=== PATIENT | male | born 1980 | race Caucasian/White ===

== ENCOUNTER 2016-10-11 00:20 | Emergency (ER) | payer OTHER ==
[~2016-10-11] VITALS: Ht 180.3 cm; Wt 137.9 kg
[~2016-10-11 00:20] MED LIST: IBUP600T44 PO
[2016-10-11 00:26] VITALS: TEMP 36.7; Ht 180.3 cm; Wt 137.9 kg
[2016-10-11] MEDS ORDERED: NALT380I INJ (00:48)
[2016-10-11 01:33] VITALS: BP 145/96; PULSE 78; O2SAT 98
[2016-10-11] MEDS ORDERED: DICL75TA2 PO (01:37)
--- NOTE | 2016-10-11 03:48 | EMERGENCY ROOM VISIT NOTE ---
ED Visit Note First contact with patient: 00:31 CHIEF COMPLAINT: knee pain HISTORY OF PRESENT ILLNESS: This 36-year-old male patient presents to the emergency department after sustaining an injury to the left knee earlier today when walking downhill. The patient states that he has had some ongoing knee pain for the past month, and he exacerbated it this afternoon. The patient denies any other injuries besides their knee. The patient does not have swelling or bruising. There is pain diffusely. They rate the pain as dull and 7/10. The patient states they are able to walk on it. No numbness or tingling. No previous injuries to this knee. No ankle, foot or hip pain. REVIEW OF SYSTEMS: A 6 system review of systems was completed with positives and pertinent negatives listed in the HPI. ALLERGIES: Amoxicillin, narcotics MEDICATIONS: No chronic medication PMH: Otherwise healthy SOCIAL HISTORY: Lives outside of [place] PHYSICAL EXAM: Vital Signs: Reviewed Nurse's notes, vital signs stable. GENERAL : White male, no acute distress, but appears in pain, well-developed, well- nourished. MENTAL STATUS: Alert, oriented to person place and time, and cooperative. MUSCULOSKELETAL: The left knee is minimally swollen. There is no ecchymosis. There is no joint effusion present. The patient is tender medially. There is no joint line tenderness. The patella does not subluxate. Range of motion is normal. Strength of the quads and hamstrings is 5/5. Hanna' s is negative. Naye's and Anterior Drawer tests are negative. There is no laxity with varus and valgus stressing. The foot and toes are warm and well- perfused. Dorsalis pedis pulse 2+. Sensation to pain and light touch is intact. Capillary refill less than 2 seconds. EMERGENCY DEPARTMENT COURSE: Physical exam and history were performed. Nursing notes and EMR were reviewed. The patient appears to have left knee pain for the past month that is exacerbated today. X-rays were performed and do not appear to show acute fracture or dislocation per my interpretation. Radiology report is pending at the time of this dictation. I offered crutches and knee immobilizer to the patient, and he declined. He is unable to take narcotics and I will give him a prescription of diclofenac. The patient will also be given information to follow with orthopedics and was otherwise invited back to the ER with any new, worsening, or concerning symptoms. Current/Historical Medications Scheduled Diclofenac Sodium (Voltaren), 75 MG PO BID Naltrexone (Vivitrol), 1 DOSE INJ MONTHLY Scheduled PRN Ibuprofen (Motrin), 600 MG PO TID PRN for Pain Allergies Coded Allergies: Amoxicillin (Verified Allergy, Unknown, hives, 04/15/15) Uncoded Allergies: NARCOTICS (Allergy, Severe, PATIENT IS ON VIVITROL, 10/11/16) PT REQUEST ABSOLUTELY NO NARCOTICS FOR PAIN..EX HEROIN ADDICT AND ON VIVITROL Vital Signs Date Time Temp Pulse Resp B/P Pulse Ox O2 Delivery O2 Flow Rate FiO2 10/11/16 01:33 78 18 145/96 98 Room Air 10/11/16 00:26 36.7 89 18 137/90 96 Room Air Departure Information Impression Primary Impression: Left knee pain Dispostion Home / Self-Care Condition GOOD Prescriptions Diclofenac Sodium (VOLTAREN) 75 Mg Tab 75 MG PO BID for 10 Days, #20 TAB Prov: Dejuan Castaneda, JUANCARLOS 10/11/16 Referrals Baldemar Nicholson M.D. Forms HOME CARE DOCUMENTATION FORM, Work Instructions, Additional Instructions: Patient was seen and evaluated today in the emergency department medica care. Return to work on 10/14/2016. IMPORTANT VISIT INFORMATION Patient Instructions My [facility], ED RICE Additional Instructions You were seen and evaluated today on an emergency basis only. This is not a substitute for, or an effort to provide, complete comprehensive medical care. It is not possible to recognize and treat all injuries or illnesses in a single emergency department visit. For this reason it is recommended that you followup with Orthopedics, Dr. Nicholson's office, with any ongoing or persistent issues. Take diclofenac 75 mg twice daily with food. You are welcome to return to the emergency department anytime with new, worsening, or concerning symptoms. Work Instructions Additional Work Instructions: Patient was seen and evaluated today in the emergency department medical care. Return to work on 10/14/2016.
--- NOTE | 2016-10-11 07:18 | DIAGNOSTIC IMAGING REPORT ---
LEFT KNEE 3 VIEWS CLINICAL HISTORY: Left knee pain of one month's duration. No history of trauma. FINDINGS: AP, crosstable lateral, and sunrise views of the left knee are obtained. No prior studies are available for comparison at the time of dictation. The skeletal structures are well mineralized. No fracture is seen. The joint spaces of the knee are well-maintained. A joint effusion is identified. Mild patellar soft tissue edema is noted. IMPRESSION: Mild soft tissue swelling and joint effusion. No fracture is seen. Electronically signed by: Humberto Ha M.D. 10/11/2016 7:17 AM Dictated Date/Time: 10/11/2016 7:16 AM
== END 2016-10-11 01:45 | disposition home or self-care (01) ==
LOC: C.EDB 00:21 → C.EDC 01:45
DX: M25.562 Pain in left knee (principal)

== ENCOUNTER 2016-12-22 16:23 | Emergency (ER) | payer OTHER ==
[~2016-12-22] VITALS: Ht 180.3 cm; Wt 124.5 kg
[~2016-12-22 16:23] MED LIST changes: +NALT380I INJ
[2016-12-22 16:26] VITALS: TEMP 36.7; Ht 180.3 cm; Wt 124.5 kg
--- NOTE | 2016-12-22 16:43 | EMERGENCY ROOM VISIT NOTE ---
History Report prepared by Kendra: Radha Basurto Under the Supervision of: Mykel RidleyO. First contact with patient: 16:29 Chief Complaint: ABDOMINAL PAIN Stated Complaint: HERNIA- MAY BE WC Nursing Triage Summary: Pt reports umbilical pain for a couple weeks with diarrhea and constipation. Last BM was an hour ago. History of Present Illness The patient is a 36 year old male who presents to the Emergency Room with complaints of persistent umbilical abdominal pain that began four days ago. He currently rates his discomfort as a 3/10 in severity. The patient states that he noticed an umbilical hernia four days ago and denies seeing anyone for his hernia. He reports intermittent nausea, but denies any vomiting. The patient reports tobacco use, but denies any alcohol use. He additionally notes constipation. The patient reports a history of psoriasis. He notes a surgical history of bilateral carpal tunnel hands, and bilateral hip surgeries. Source of History: patient Onset: four days ago Position: abdomen (umbilical) Symptom Intensity: 3/10 Timing: other (persistent) Associated Symptoms: + nausea, No vomiting Note: Associated Symptoms: constipation Review of Systems See HPI for pertinent positives & negatives. A total of 10 systems reviewed and were otherwise negative. Past Medical & Surgical Medical Problems: (1) No Known Active Medical Problems Family History FH: HTN (hypertension) FH: diabetes mellitus FH: heart disease Social History Smoking Status: Current Every Day Smoker Alcohol Use: none Housing Status: lives alone Occupation Status: employed Current/Historical Medications No Active Prescriptions or Reported Meds Allergies Coded Allergies: Amoxicillin (Verified Allergy, Unknown, hives, 12/22/16) Uncoded Allergies: NARCOTICS (Allergy, Severe, PATIENT IS ON VIVITROL, 10/11/16) PT REQUEST ABSOLUTELY NO NARCOTICS FOR PAIN..EX HEROIN ADDICT AND ON VIVITROL Physical Exam Vital Signs Date Time Temp Pulse Resp B/P (MAP) Pulse Ox O2 Delivery O2 Flow Rate FiO2 12/22/16 18:16 79 18 139/90 96 12/22/16 16:26 36.7 86 18 140/77 96 Room Air Physical Exam GENERAL: Patient is awake, alert, and in no acute distress. Patient is resting comfortably and showing no signs of anxiety EYES: The conjunctivae are clear. The pupils are round and reactive. EARS, NOSE, MOUTH AND THROAT: The nose is without any evidence of any deformity. Mucous membranes are moist tongue is midline NECK: The neck is nontender and supple. RESPIRATORY: Normal respiratory effort is noted there is no evidence of wheezing rhonchi or rales CARDIOVASCULAR: Regular rate and rhythm noted there no murmurs rubs or gallops normal S1 normal S2 GASTROINTESTINAL: The abdomen is mildly distended but soft, umbilical hernia noted to palpation, easily reducible and nontender. no groin tenderness. MUSCULOSKELETAL/EXTREMITIES: There is no evidence of gross deformity full range of motion is noted in the hips and shoulders SKIN: There is no obvious evidence of any rash. There are no petechiae, pallor or cyanosis noted. NEUROLOGIC: Patient is awake alert and oriented x3. Medical Decision & Procedures ER Provider Diagnostic Interpretation: ABDOMEN 2VIEW W/PA CHEST RTN CLINICAL HISTORY: ABDOMINAL PAIN/GI COMPARISON STUDY: No previous studies for comparison. FINDINGS: The soft tissues, psoas shadows, renal outlines and intestinal gas pattern appear normal. There is no evidence for bowel obstruction. There is no evidence for free intraperitoneal air. No abnormal abdominal calcifications are seen. A frontal view of the chest was performed and is unremarkable. IMPRESSION: Normal study. The above report was generated using voice recognition software. It may contain grammatical, syntax or spelling errors. Electronically signed by: Torsten Armstrong M.D. 12/22/2016 5:26 PM Laboratory Results 12/22/16 16:45 Red Blood Count 4.96, Mean Corpuscular Volume 89.9, Mean Corpuscular Hemoglobin 30.2, Mean Corpuscular Hemoglobin Concent 33.6, Mean Platelet Volume 11.3, Neutrophils (%) (Auto) 63.0, Lymphocytes (%) (Auto) 22.6, Monocytes (%) (Auto) 11.2, Eosinophils (%) (Auto) 2.7, Basophils (%) (Auto) 0.2, Neutrophils # (Auto ) 6.79, Lymphocytes # (Auto) 2.43, Monocytes # (Auto) 1.20, Eosinophils # (Auto ) 0.29, Basophils # (Auto) 0.02 12/22/16 16:45 Test 12/22/16 16:45 White Blood Count 10.76 K/uL (4.8-10.8) Red Blood Count 4.96 M/uL (4.7-6.1) Hemoglobin 15.0 g/dL (14.0-18.0) Hematocrit 44.6 % (42-52) Mean Corpuscular Volume 89.9 fL (80-100) Mean Corpuscular Hemoglobin 30.2 pg (25-34) Mean Corpuscular Hemoglobin Concent 33.6 g/dl (32-36) Platelet Count 285 K/uL (130-400) Mean Platelet Volume 11.3 fL (7.4-10.4) Neutrophils (%) (Auto) 63.0 % Lymphocytes (%) (Auto) 22.6 % Monocytes (%) (Auto) 11.2 % Eosinophils (%) (Auto) 2.7 % Basophils (%) (Auto) 0.2 % Neutrophils # (Auto) 6.79 K/uL (1.4-6.5) Lymphocytes # (Auto) 2.43 K/uL (1.2-3.4) Monocytes # (Auto) 1.20 K/uL (0.11-0.59) Eosinophils # (Auto) 0.29 K/uL (0-0.5) Basophils # (Auto) 0.02 K/uL (0-0.2) RDW Standard Deviation 43.8 fL (36.4-46.3) RDW Coefficient of Variation 13.4 % (11.5-14.5) Immature Granulocyte % (Auto) 0.3 % Immature Granulocyte # (Auto) 0.03 K/uL (0.00-0.02) Prothrombin Time 10.1 SECONDS (9.0-12.0) Prothromb Time International Ratio 0.9 (0.9-1.1) Activated Partial Thromboplast Time 27.6 SECONDS (21.0-31.0) Partial Thromboplastin Ratio 1.1 Anion Gap 7.0 mmol/L (3-11) Est Creatinine Clear Calc Drug Dose 134.5 ml/min Estimated GFR () 110.2 Estimated GFR (Non- 95.1 BUN/Creatinine Ratio 7.8 (10-20) Calcium Level 9.2 mg/dl (8.5-10.1) Total Bilirubin 0.3 mg/dl (0.2-1) Direct Bilirubin 0.1 mg/dl (0-0.2) Aspartate Amino Transf (AST/SGOT) 22 U/L (15-37) Alanine Aminotransferase (ALT/SGPT) 38 U/L (12-78) Alkaline Phosphatase 102 U/L (45-117) Total Protein 7.5 gm/dl (6.4-8.2) Albumin 3.7 gm/dl (3.4-5.0) Lipase 142 U/L (73-393) Laboratory results per my review. ED Course 163: The patient was evaluated in room A2. A complete history and physical examination were performed. 163: I discussed the patients case with Dr. Hong General Surgery. He is going to come evaluate the patient. 164: I reevaluated the patient and he is doing well. I updated him on the treatment plan. He is awaiting General Surgery evaluation. 1730: I spoke to the patients case with Dr. Hong General Surgery. He states that he saw the patient and will take the patient to the Operating room on Tuesday. He states that his office will set everything up for the patient. The patient is in agreement with the treatment plan. Medical Decision Differential diagnosis: Etiologies such as appendicitis, diverticulitis, PUD, biliary pathology, UTI, pancreatitis, obstruction, mesenteric ischemia, aortic pathology, infections, inflammatory bowel disease, renal colic, as well as others were entertained. Nursing notes reviewed. The patient is a 36-year-old male who presented to the emergency department for evaluation of abdominal pain. The patient noticed tenderness over his umbilicus. He appears to have an umbilical hernia at this time. His physical exam was not consistent with an acute surgical abdomen. I discussed the patient' s laboratory and radiographic studies with him. I discussed his case with the on -call general surgeon. The patient was evaluated in the emergency department by the general surgeon and will be scheduled for outpatient treatment of this umbilical hernia. The patient was encouraged to return to the department if symptoms change worsen or the need arises. He was also encouraged to avoid any heavy lifting. Consults Time Called: 1633 Consulting Physician: Dr. Hong, General Surgery Returned Call: 1636 I discussed the patients case with Dr. Hong General Surgery. He is going to come evaluate the patient. Impression Primary Impression: Umbilical hernia Scribe Attestation The scribe's documentation has been prepared under my direction and personally reviewed by me in its entirety. I confirm that the note above accurately reflects all work, treatment, procedures, and medical decision making performed by me. Departure Information Dispostion Home / Self-Care Prescriptions No Active Prescriptions or Reported Meds Referrals No Doctor, Assigned (PCP) Myah Hong MD Forms Call Back Authorization, HOME CARE DOCUMENTATION FORM, IMPORTANT VISIT INFORMATION Patient Instructions Hernia, [facility] Additional Instructions Follow-up with the surgeon to schedule the surgical repair the hernia. Avoid any strenuous activity. Avoid any strong pain medication. Problem Qualifiers Primary Impression: Umbilical hernia Obstruction and gangrene presence: without obstruction or gangrene Qualified Codes: K42.9 - Umbilical hernia without obstruction or gangrene
[2016-12-22 16:58] LABS: BASO % 0.2 %; BASO ABS # 0.02 K/uL (0-0.2); COMPLETE YES; EOS % 2.7 %; HEMATOCRIT 44.6 % (42-52); IG% 0.3 %; LYMPH % 22.6 %; LYMPH ABS # 2.43 K/uL (1.2-3.4); MEAN CELL VOLUME 89.9 fL (80-100); MEAN CORPUSCULAR HEMOGLOBIN 30.2 pg (25-34); MEAN CORPUSCULAR HGB CONC 33.6 g/dl (32-36); MEAN PLATELET VOLUME 11.3 fL (7.4-10.4); MONO % 11.2 %; PLATELET COUNT 285 K/uL (130-400); RED BLOOD COUNT 4.96 M/uL (4.7-6.1); WHITE BLOOD COUNT 10.76 K/uL (4.8-10.8)
[2016-12-22 17:08] LABS: INR 0.9 (0.9-1.1); PARTIAL THROMBOPLASTIN RATIO 1.1; PROTHROMBIN TIME (PATIENT) 10.1 SECONDS (9.0-12.0)
[2016-12-22 17:17] LABS: BUN/CREATININE RATIO 7.8 (10-20); CALCIUM 9.2 mg/dl (8.5-10.1); POTASSIUM 3.7 mmol/L (3.5-5.1)
--- NOTE | 2016-12-22 17:27 | DIAGNOSTIC IMAGING REPORT ---
ABDOMEN 2VIEW W/PA CHEST RTN CLINICAL HISTORY: ABDOMINAL PAIN/GI COMPARISON STUDY: No previous studies for comparison. FINDINGS: The soft tissues, psoas shadows, renal outlines and intestinal gas pattern appear normal. There is no evidence for bowel obstruction. There is no evidence for free intraperitoneal air. No abnormal abdominal calcifications are seen. A frontal view of the chest was performed and is unremarkable. IMPRESSION: Normal study. The above report was generated using voice recognition software. It may contain grammatical, syntax or spelling errors. Electronically signed by: Torsten Armstrong M.D. 12/22/2016 5:26 PM Dictated Date/Time: 12/22/2016 5:25 PM
--- NOTE | 2016-12-22 17:45 | Surgery Consultation ---
Consultation Date of Consultation: Dec 22, 2016. Attending Physician: History of Present Illness The patient is a 36 year old male who presents to the Emergency Room with complaints of persistent umbilical abdominal pain that began four days ago. He currently rates his discomfort as a 3/10 in severity. The patient states that he noticed an umbilical hernia four days ago and denies seeing anyone for his hernia. He reports intermittent nausea, but denies any vomiting. The patient reports tobacco use, but denies any alcohol use. He additionally notes constipation. The patient reports a history of psoriasis. He notes a surgical history of bilateral carpal tunnel hands, and bilateral hip surgeries. I saw pt at ER, now pt feels better, minimal pierce-umbilical pain, no nausea, no vomiting, no fever, Past Medical/Surgical History Medical Problems: (1) Left knee pain Status: Acute (2) Wrist pain, left Status: Acute Family History FH: HTN (hypertension) FH: diabetes mellitus FH: heart disease Social History Smoking Status: Current Every Day Smoker Smokeless Tobacco Use: No Alcohol Use: occasionally Drug Use: none Housing Status: lives alone Occupation Status: employed Allergies Coded Allergies: Amoxicillin (Verified Allergy, Unknown, hives, 12/22/16) Uncoded Allergies: NARCOTICS (Allergy, Severe, PATIENT IS ON VIVITROL, 10/11/16) PT REQUEST ABSOLUTELY NO NARCOTICS FOR PAIN..EX HEROIN ADDICT AND ON VIVITROL Home Medications No Active Prescriptions or Reported Meds Review of Systems Constitutional: No fever, No chills, No sweats, No weight loss, No weakness, No fatigue, No problem reported Eyes: No worsening of vision, No eye pain, No redness, No discharge, No diplopia, No problem reported ENT: No hearing loss, No unusual epistaxis, No nasal symptoms, No sore throat, No tinnitus, No dental problems, No trouble swallowing, No problem reported Respiratory: No cough, No sputum, No wheezing, No shortness of breath, No dyspnea on exertion, No dyspnea at rest, No hemoptysis, No problem reported Cardiovascular: No chest pain, No orthopnea, No PND, No edema, No claudication , No palpitations, No problem reported Abdomen: + pain, + nausea, + vomiting Musculoskeletal: No joint pain, No muscle pain, No swelling, No calf pain, No problem reported Genitourinary - Male: No hematuria, No dysuria, No urinary frequency, No urinary urgency, No urinary hesitancy, No urinary retention, No urinary incontinence, No penile discharge, No lesions, No impotence, No problem reported Neurologic: No memory loss, No paralysis, No weakness, No numbness/tingling, No vertigo, No balance problems, No problem reported Psychiatric: No depression symptoms, No anhedonism, No anxiety, No insomnia, No substance abuse, No problem reported Endocrine: No fatigue, No excessive thirst, No excessive urination, No problem reported Hematologic / Lymphatic: No abnormal bleeding/bruising, No clotting problems, No swollen lymph nodes, No night sweats, No problem reported Physical Exam Date Time Temp Pulse Resp B/P (MAP) Pulse Ox O2 Delivery O2 Flow Rate FiO2 12/22/16 16:26 36.7 86 18 140/77 96 Room Air General Appearance: WD/WN, no apparent distress Head: normocephalic Eyes: normal inspection ENT: normal ENT inspection Neck: supple, no JVD Respiratory/Chest: chest non-tender, lungs clear Cardiovascular: regular rate, rhythm, no edema, no gallop, no JVD Abdomen/GI: normal bowel sounds, non tender (tenderness at periumbilical area, umbilical hernia, reduceble, ), soft, no organomegaly, no pulsatile mass, + tenderness Extremities/Musculoskelatal: normal inspection, no calf tenderness, normal capillary refill Neurologic/Psych: no motor/sensory deficits, alert, normal mood/affect Skin: normal color, warm/dry, no rash Laboratory Results Last 24 Hours Test 12/22/16 16:45 White Blood Count 10.76 K/uL Red Blood Count 4.96 M/uL Hemoglobin 15.0 g/dL Hematocrit 44.6 % Mean Corpuscular Volume 89.9 fL Mean Corpuscular Hemoglobin 30.2 pg Mean Corpuscular Hemoglobin Concent 33.6 g/dl Platelet Count 285 K/uL Mean Platelet Volume 11.3 fL Neutrophils (%) (Auto) 63.0 % Lymphocytes (%) (Auto) 22.6 % Monocytes (%) (Auto) 11.2 % Eosinophils (%) (Auto) 2.7 % Basophils (%) (Auto) 0.2 % Neutrophils # (Auto) 6.79 K/uL Lymphocytes # (Auto) 2.43 K/uL Monocytes # (Auto) 1.20 K/uL Eosinophils # (Auto) 0.29 K/uL Basophils # (Auto) 0.02 K/uL RDW Standard Deviation 43.8 fL RDW Coefficient of Variation 13.4 % Immature Granulocyte % (Auto) 0.3 % Immature Granulocyte # (Auto) 0.03 K/uL Prothrombin Time 10.1 SECONDS Prothromb Time International Ratio 0.9 Activated Partial Thromboplast Time 27.6 SECONDS Partial Thromboplastin Ratio 1.1 Sodium Level 140 mmol/L Potassium Level 3.7 mmol/L Chloride Level 109 mmol/L Carbon Dioxide Level 24 mmol/L Anion Gap 7.0 mmol/L Blood Urea Nitrogen 8 mg/dl Creatinine 1.00 mg/dl Est Creatinine Clear Calc Drug Dose 134.5 ml/min Estimated GFR () 110.2 Estimated GFR (Non- 95.1 BUN/Creatinine Ratio 7.8 Random Glucose 93 mg/dl Calcium Level 9.2 mg/dl Total Bilirubin 0.3 mg/dl Direct Bilirubin 0.1 mg/dl Aspartate Amino Transf (AST/SGOT) 22 U/L Alanine Aminotransferase (ALT/SGPT) 38 U/L Alkaline Phosphatase 102 U/L Total Protein 7.5 gm/dl Albumin 3.7 gm/dl Lipase 142 U/L Assessment & Plan assessment: pt is a 36 yo male who presents to ER for 4 days periumbilical pain , IMP: umbilical hernia, I recommend to do open repair umbilical hernia, possible with mesh on 12/28/2016. D/W benefits, risks and alternatives of the procedure, the risks- infection, bleeding, hernia recurrence, pt understood, he agrees with the plan, I answered all questions, I also instructed pt, he should come back to ER if he develops severe abdominal pain, nausea, voimiting, fever, pt understood,
[2016-12-22 18:16] VITALS: BP 139/90; PULSE 79; O2SAT 96
== END 2016-12-22 18:17 | disposition home or self-care (01) ==
LOC: C.EDB 16:24 → C.EDA 18:17
DX: K42.9 Umbilical hernia without obstruction or gangrene (principal); F17.210 Nicotine dependence, cigarettes, uncomplicated

== ENCOUNTER 2016-12-28 08:13 | Day surgery (SDC) | payer OTHER ==
[2016-12-27 15:08] VITALS: BMI 37.0
[~2016-12-28] VITALS: Ht 180.3 cm; Wt 122.7 kg
[~2016-12-28 08:13] MED LIST changes: +BACITRACIN OINT 15 GM TUBE ONE; +BUPIVACAINE 0.5 % 5 MG/1 ML MPF 30ML VIAL ONE; +CLINDAMYCIN IV 900 MG in DEXTROSE 5% 100ML 100 ML IV SCH; +FENTANYL CITRATE INJ 50 MCG/1 ML 2 ML VIAL ONE; -IBUP600T44 PO; +LACTATED RINGER'S 1000ML 1,000 ML IV SCH; +LIDOCAINE HCL 1% 20 ML VIAL ONE; +MIDAZOLAM HCL 1 MG/ML 2ML VIAL ONE; -NALT380I INJ
[2016-12-28 08:25] VITALS: BP 139/88; PULSE 82; TEMP 36.6; O2SAT 97; Ht 180.3 cm; Wt 122.7 kg
--- NOTE | 2016-12-28 08:25 | History & Physical Bridge Note ---
H&P Re-Evaluation Bridge Note: I have examined the patient, reviewed the History & Physical and in the interval since the performance of the History & Physical I have noted the following changes of clinical significance: No changes noted
[2016-12-28] MEDS ORDERED: CLINDAMYCIN IV 900 MG in DEXTROSE 5% 100ML 100 ML IV ONE (08:30)
[2016-12-28] MEDS ORDERED: FENTANYL CITRATE INJ 50 MCG/1 ML 2 ML VIAL ONE ×2 (09:13→09:38)
[2016-12-28] MEDS ORDERED: ONDANSETRON INJ 2 MG/ML 2 ML VIAL IV PRN ×2 (09:15→10:00)
[2016-12-28] MEDS ORDERED: ATROPINE SULFATE 0.1 MG/ML 5ML SYR IV PRN (09:15)
[2016-12-28] MEDS ORDERED: HYDROmorphone INJ 1 MG/ML SYR IV PRN (09:15)
[2016-12-28] MEDS ORDERED: EpHEDrine SULFATE INJ 50 MG/ML AMP IV PRN (09:15)
[2016-12-28] MEDS ORDERED: PROMETHAZINE HCL INJ 6.25 MG in SODIUM CHLORIDE 0.9% 50ML 50 ML IV PRN (09:15)
[2016-12-28] MEDS ORDERED: HYDROmorphone INJ 2 MG/ML SYR/VIAL ONE (09:41)
--- NOTE | 2016-12-28 09:41 | [facility] Post Operative Brief Note ---
Immediate Operative Summary Operative Date Dec 28, 2016. Pre-Operative Diagnosis umbilical hernia Post-Operative Diagnosis umbilical hernia Procedure(s) Performed Open Repair Umbilical Hernia Surgeon Dr. Myah Hong Textiles Printer Surgeon(s) Mone Adamson PA-C Estimated Blood Loss 5ml Findings umbilical hernia Fluids (cc crystalloids) 1000ml Specimens none per surgeon Dr. Myah Hong Drains none Anesthesia general Complication(s) None Disposition Recovery Room / PACU
[2016-12-28] MEDS ORDERED: OXYC-57 PO (09:51)
--- NOTE | 2016-12-28 09:54 | Discharge Instructions ---
Discharge Instructions Date of Service Dec 28, 2016. Admission Reason for Admission: Umbilical Hernia Discharge Discharge Diagnosis / Problem: same Discharge Goals Goal(s): Decrease discomfort Activity Recommendations Activity Limitations: as noted below No heavy lifting over 10 pounds or strenuous activity for 4-6 weeks Keep dressing on for 4 days, sponge bath and may wash hair in meantime. Shower after 4 days, you may remove dressing. Keep steri strips on incision for 7-10 days, they may fall off on their own that is okay No submerging incision underwater for 2 weeks (no bathing, swimming, or hot tubs ) No driving while taking narcotic pain medication . Instructions / Follow-Up Instructions / Follow-Up Follow-up with Dr. Hong in 1-2 weeks, please call office at [phone] if you do not already have an appointment Current Hospital Diet Patient's current hospital diet: Discharge Diet Recommended Diet: Regular Diet Procedures Procedures Performed: Open Repair Umbilical Hernia Pending Studies Studies pending at discharge: no Medical Emergencies . Who to Call and When: Medical Emergencies: If at any time you feel your situation is an emergency, please call 911 immediately. . Non-Emergent Contact Non-Emergency issues call your: Primary Care Provider, Surgeon Call Non-Emergent contact if: you have a fever, temperature is above 101.5, your pain is not controlled, your pain is worsening, wound has increased drainage, wound has increased redness, wound has increased pain . "Provider Documentation" section prepared by Mone Adamson. . VTE Core Measure Inpt VTE Proph given/why not?: SCD's [place] Drug Monitoring Program Search Results: patient reviewed within database, no issues identified
[2016-12-28] MEDS ORDERED: PROPOFOL IV EMULSION 10 MG/ML 20 ML VIAL IV ONE (09:57)
[2016-12-28] MEDS ORDERED: NEOSTIGMINE METHYLSULFATE 5 MG/5 ML SYR ONE (09:57)
[2016-12-28] MEDS ORDERED: ONDANSETRON INJ 2 MG/ML 2 ML VIAL ONE (09:57)
[2016-12-28] MEDS ORDERED: GLYCOPYRROLATE INJ 0.2 MG/ML VIAL ONE (09:57)
[2016-12-28] MEDS ORDERED: DEXAMETHASONE SOD INJ 4 MG/ML VIAL ONE (09:57)
[2016-12-28] MEDS ORDERED: KETOROLAC TROMETHAMINE 30 MG/ML VIAL ONE (09:57)
[2016-12-28] MEDS ORDERED: LIDOCAINE HCL 2% 2 ML VIAL (20MG/ML) ONE (09:57)
[2016-12-28] MEDS ORDERED: ROCURONIUM BROMIDE 10 MG/ML 5 ML VIAL ONE (09:57)
[2016-12-28] MEDS ORDERED: MoRPHine SULFATE 2 MG/ML CARP IV PRN ×2 (10:00)
[2016-12-28] MEDS ORDERED: OXYCODONE/ACETAMINOPHEN 5-325 TAB PO PRN (10:00)
[2016-12-28] MEDS ORDERED: MoRPHine SULFATE 4 MG/ML 1 ML CARP\\VIAL IV PRN (10:00)
[2016-12-28] MEDS: FENTANYL CITRATE INJ 50 MCG/1 ML 2 ML VIAL IV PRN ×2 (10:09→10:16)
--- NOTE | 2016-12-28 10:20 | OPERATIVE REPORT ---
DATE OF OPERATION: 12/28/2016 PREOPERATIVE DIAGNOSIS: Umbilical hernia. POSTOPERATIVE DIAGNOSIS: Same. OPERATION: Open repair of umbilical hernia primary close. SURGEON: Myah Hong M.D. RESEARCH PHYSIOLOGIST: Mone Adamson PA-C. ANESTHESIA: General. ESTIMATED BLOOD LOSS: About 5 mL. FINDINGS: Umbilical hernia size about 1 x 1 cm. COMPLICATIONS: None. INDICATIONS FOR THE PROCEDURE: This is a 36-year-old gentleman who presented symptomatic umbilical hernia. The patient will require open repair of umbilical hernia, possible mesh. I did talk to the patient about the benefit and risk, alternate procedure. I indicated the risks may include but not limited such as bleeding, infection, hernia recurrence, may need more procedure or injury to the bowel. The patient understands. She signed informed consent and I answered all questions. OPERATION AND FINDINGS: DETAILS OF PROCEDURE: We brought the patient to the OR, put the patient in the supine position. The patient received SCD on bilateral legs to prevent DVT. Also, the patient received 900 mg of clindamycin IV for prophylactic antibiotic. The patient received general anesthesia without difficulty. The abdomen was prepped and draped in routine sterile fashion. After a timeout, I injected local anesthesia around the umbilical area by using 1% lidocaine mixed with 0.5% Marcaine, then I made a small incision just below the umbilical, opened fascia, mobilized the umbilical and found the patient has umbilical hernia size about 1 x 1 cm . The hernia sac was reduced. Based on the small hernia we used #1 Ethibond close to the hernia defect by using [id number] x2, tied the suture down and reattached umbilical by using 2-0 Vicryl then closed subcutaneous layer by using 2-0 Vicryl interrupted and closed skin by using 4-0 Vicryl continuous running. Then we put the dressing on. The patient tolerated the procedure well. All the instrument, needle and sponge count correct x2 at the end of case. The patient transferred to recovery room in stable condition. I attest to the content of the Intraoperative Record and any orders documented therein. Any exceptions are noted below. MTDD
--- NOTE | 2016-12-28 10:30 | Anesthesiology Progress Note ---
Anesthesia Post Op Note Date & Time Dec 28, 2016 at 10:30 Vital Signs Pain Intensity: 3 Vital Signs Past 12 Hours Date Time Temp Pulse Resp B/P (MAP) Pulse Ox O2 Delivery O2 Flow Rate FiO2 12/28/16 10:20 67 16 145/70 95 Oxymask 2 12/28/16 10:10 67 17 144/80 100 Oxymask 4 12/28/16 10:00 73 18 150/87 99 Oxymask 10 12/28/16 09:52 36.5 82 18 161/92 99 Oxymask 10 12/28/16 08:25 36.6 82 18 139/88 (105) 97 Room Air Notes Mental Status: alert / awake / arousable, participated in evaluation Pt Amnestic to Procedure: Yes Nausea / Vomiting: adequately controlled Pain: adequately controlled Airway Patency, RR, SpO2: stable & adequate BP & HR: stable & adequate Hydration State: stable & adequate Anesthetic Complications: no major complications apparent
[2016-12-28 10:40] VITALS: BP 129/65; PULSE 81; TEMP 36.8; O2SAT 93
[2016-12-28 11:10] VITALS: BP 121/69; PULSE 67; O2SAT 92
[2016-12-28 11:40] VITALS: BP 126/68; PULSE 70; TEMP 36.8; O2SAT 94
== END 2016-12-28 12:15 | disposition home or self-care (01) ==
LOC: C.OR 08:13
PROVIDERS: ATTEND Surgery
DX: K42.9 Umbilical hernia without obstruction or gangrene (principal); F17.210 Nicotine dependence, cigarettes, uncomplicated